=== PATIENT | female | born 1980 | race Caucasian/White ===

== ENCOUNTER 2021-07-05 13:18 | Emergency (ER) | payer MEDICAID, SELFPAY | END 2021-07-05 15:10 | disposition home or self-care (01) | LOC: CSHERS 13:18 | DX: M54.50 Low back pain, unspecified (principal); E78.5 Hyperlipidemia, unspecified; I10 Essential (primary) hypertension | CPT/HCPCS: 99283 ==

== ENCOUNTER 2021-10-07 22:21 | Emergency (ER) | payer SELFPAY ==
[2021-10-07] MEDS ORDERED: Acetaminophen 500 MG TAB ONE (23:02)
[2021-10-08 15:30] LABS: SARS-CoV-2 PCR by NAA DETECTED (NotDetected)
== END 2021-10-07 23:44 | disposition home or self-care (01) ==
LOC: CSHERS 22:21
DX: U07.1 COVID-19 (principal); J06.9 Acute upper respiratory infection, unspecified; L50.9 Urticaria, unspecified; I10 Essential (primary) hypertension; E78.5 Hyperlipidemia, unspecified
CPT/HCPCS: 87081; 87430; 87804; 99283; U0003; U0005

== ENCOUNTER 2025-06-28 08:35 | Outpatient (CLI) | payer BC | END 2025-06-28 08:36 | disposition home or self-care (01) | LOC: CSHMAMMO 08:35 | DX: Z12.31 Encounter for screening mammogram for malignant neoplasm of breast (principal) | CPT/HCPCS: 77063; 77067 ==